=== PATIENT | male | born 1935 | race African-American/Black ===

== ENCOUNTER 2021-06-30 10:50 | Outpatient (CLI) | payer MEDICARE | END 2021-06-30 10:51 | disposition home or self-care (01) | LOC: BICMAMMO 10:50 | PROVIDERS: ATTEND Internal Medicine Medical Oncology | DX: M85.851 Other specified disorders of bone density and structure, right thigh (principal); M85.852 Other specified disorders of bone density and structure, left thigh; C90.00 Multiple myeloma not having achieved remission | CPT/HCPCS: 77080 ==